=== PATIENT | male | born 1975 | race Caucasian/White ===

== ENCOUNTER 2019-02-24 02:56 | Emergency (ER) | payer OTHER ==
[~2019-02-24] VITALS: Ht 175.3 cm; Wt 75.2 kg
[~2019-02-24 02:56] MED LIST: HYDR-3980 PO; IBUP800T48 PO; NALO4SPR NS; ONDA4TAB14 PO
[2019-02-24 02:58] VITALS: BP 172/118; PULSE 111; RESP 16; Ht 175.3 cm; Wt 75.2 kg
[2019-02-24] MEDS ORDERED: ONDANSETRON (ODT) 4 MG TAB ODT STA (06:39)
[2019-02-24] MEDS ORDERED: HYDROCODONE/APAP (10/325) TAB PO ONE (07:00)
== END 2019-02-24 07:30 | disposition home or self-care (01) ==
LOC: E/R 02:56
DX: S62.336A Displaced fracture of neck of fifth metacarpal bone, right hand, initial encounter for closed fracture (principal); W22.8XXA Striking against or struck by other objects, initial encounter; Y92.9 Unspecified place or not applicable
CPT/HCPCS: 29125; 73130; Z7610